=== PATIENT | female | born 1930 | race Caucasian/White ===

== ENCOUNTER 2016-09-06 18:06 | Inpatient (IN) ==
--- NOTE | 2016-09-06 18:11 | Emergency Department Note ---
Disposition Clinical Impression: Pleural effusion on left Acute renal failure Qualifiers: Acute renal failure type: unspecified Qualified Code(s): N17.9 - Acute kidney failure, unspecified Left lower lobe pneumonia Qualifiers: Pneumonia type: due to unspecified organism Qualified Code(s): J18.1 - Lobar pneumonia, unspecified organism Disposition: Admitted As Inpatient Condition: Fair Referrals: Ryan August MD [Primary Care Provider] - Forms: ED Satisfaction Letter SOB HPI - General Chief Complaint: ED Upper Respiratory Infection Stated Complaint: cough Time Seen by Provider: 09/06/16 18:09 Source: patient, other (custodial record, Dr. August) Mode of arrival: EMS Limitations: no limitations Nursing Notes Reviewed: Yes Vital Signs Reviewed: Yes - History of Present Illness The patient has had a recent pneumonia. She states she still has a cough productive of some white phlegm. She denies increased cough, fevers, chills or shortness of breath. She did have a chest x-ray performed showing opacification of the left lower lobe consistent with infiltrate, mass or large effusion. She has had a history of an effusion with thoracentesis in the past. She has been sent in for further evaluation of the left leg. She denies chest pain, palpitations, abdominal pain, nausea or vomiting. She denies increased weakness, dizziness or diaphoresis. She denies any extremity complaints. She indicates that she is feeling pretty good at this time. Pt Subjective Complaint: shortness of breath Onset (ago): day(s) Context: recent illness Severity: mild Consistency/Duration: intermittent Worsens with: nothing Known history of: recurrent pneumonia Associated symptoms: Reports: cough, sputum production. Denies: chest pain, pain with inspiration, fever, wheezing, orthopnea, lower extremity pain, polyuria, polydipsia, parasthesias, palpitations, hemoptysis, diaphoresis, nausea/vomiting, syncope, abdominal pain, rash Treatment prior to arrival: oxygen Cough present: Yes Cough Description: Voluntary, Productive Cough Frequency: Intermittent Sputum production: Yes Sputum Amount: Moderate Sputum Color: White - Related Data Home Medications Medication Instructions Recorded Confirmed Acetaminophen [Tylenol] 650 mg PO Q4HR 09/06/16 09/06/16 Albuterol Sulfate [Albuterol 2 puff IH Q6HR 09/06/16 09/06/16 Inhaler] Amlodipine [Norvasc] 5 mg PO DAILY 09/06/16 09/06/16 Bisacodyl [Laxative] 10 mg PO QAM 09/06/16 09/06/16 CloNIDine HCl [Clonidine HCl] 0.2 mg PO BID 09/06/16 09/06/16 Docusate [Colace] 100 mg PO BID 09/06/16 09/06/16 GuaiFENesin ER [Mucinex] 600 mg PO TID 09/06/16 09/06/16 Lactulose 20 gm PO QAM 09/06/16 09/06/16 Losartan Potassium [Cozaar] 100 mg PO DAILY 09/06/16 09/06/16 Lovastatin [Altoprev] 40 mg PO QAM 09/06/16 09/06/16 Lovastatin [Altoprev] 40 mg PO QAM 09/06/16 09/06/16 Magnesium Hydroxide [Milk of 400 mg PO QAM 09/06/16 09/06/16 Magnesia] Omeprazole 20 mg PO QAM 09/06/16 09/06/16 Vit C/E/Zn/Coppr/Lutein/Zeaxan 1 cap PO QAM 09/06/16 09/06/16 [Preservision Areds 2 Softgel] Allergies Allergy/AdvReac Type Severity Reaction Status Date / Time No Known Allergies Allergy Verified 09/06/16 18:07 All systems ED: reviewed and negative except as stated. Past Medical History - Past Medical History Attestation: Yes The following information was validated with the patient. Source: patient, old records reviewed, nursing notes reviewed Medical history: Reports: cancer (Lung cancer, squamous cell), COPD (Emphysema) , dementia, GERD, hyperlipidemia, hypertension Surgical history: Reports: , hysterectomy Psychiatric history: Reports: no psych history - Social History Smoking Status: Former smoker Alcohol use: Reports: none Drug use: Reports: none Physical Exam - General Limitations: no limitations General appearance: alert, in no apparent distress - Head Head exam: atraumatic, normocephalic, normal inspection - Eye Eye exam: Present: normal appearance, PERRL, EOMI - ENT ENT exam: normal exam, normal oropharynx, mucous membranes moist - Neck Neck exam: Present: normal inspection, full ROM, trachea midline - Chest Chest inspection: Present: normal inspection, symmetric chest wall rise - Respiratory Respiratory exam: Absent: normal lung sounds bilaterally (Diminished breath sounds at the left base.), respiratory distress, wheezes, prolonged expiratory phase - Cardiovascular Cardiovascular exam: Present: regular rate, normal rhythm, normal heart sounds - Abdominal Exam Abdominal exam: Present: soft, Non-Tender, normal bowel sounds. Absent: tenderness, distention, guarding, rebound, rigidity - Extremities Exam Extremities exam: Present: normal inspection, full ROM, normal capillary refill. Absent: tenderness, pedal edema, calf tenderness - Expanded Lower Extremity Exam Neurovascular/Tendon exam: Present: normal capillary refill. Absent: motor deficit, sensory deficit, tendon deficit Gait: not tested/not observed - Neurological Exam Neurological exam: Present: alert. Absent: motor sensory deficit - Psychiatric Psychiatric exam: Present: normal affect, normal mood - Skin Skin exam: Present: warm, dry, intact, normal color. Absent: rash, cyanosis, diaphoresis, pallor Course Vital Signs Temperature 97.8 F 09/06/16 18:08 Temperature 97.8 F 09/06/16 19:05 Pulse Rate 58 09/06/16 19:05 Respiratory Rate 16 09/06/16 19:05 Blood Pressure 98/37 09/06/16 19:05 O2 Sat by Pulse Oximetry 95 09/06/16 19:05 Oxygen Delivery Oxygen Delivery Nasal Cannula Shortness of Breath/Dyspnea - Differential Diagnosis Likely: acute exacerbation of chronic obstructive airways disease, pneumonia ( Lung mass, pleural effusion) - Medical Records Medical records reviewed: Yes I reviewed the patient's medical records. - Lab Data Lab results reviewed: Yes I reviewed the patient's lab results. Lab results narrative: Patient's renal failure is acute. Result diagrams: 09/06/16 18:27 09/06/16 18:27 Lab Results 09/06/16 09/06/16 09/06/16 Range/Units 18:27 18:27 18:27 WBC 22.7 H (4.3-11.1) K/mcL RBC 3.44 L (3.82-4.97) M/mcL Hgb 10.4 L (11.5-15.4) g/dL Hct 31.8 L (35.3-44.9) % MCV 92.4 (83.0-100.0) fL MCH 30.2 (28.0-33.3) pg MCHC 32.7 (31.6-35.5) g/dL RDW 14.4 (11.5-14.5) % Plt Count 302 (140-400) K/mcL MPV 9.6 (9.4-12.4) fL Immature Gran % 0.8 (0-4) % Seg Neutrophils % 84.1 % Lymphocytes % 9.0 % Monocytes % 6.0 % Eosinophils % 0.0 % Basophils % 0.1 % Neutrophils # 19.1 H (1.6-8.9) K/mcL Lymphocytes # 2.0 (0.6-4.6) K/mcL Monocytes # 1.4 H (0.0-1.3) K/mcL Eosinophils # 0.0 (0.0-0.6) K/mcL Basophils # 0.0 (0.0-0.2) K/mcL PT 12.6 H (9.4-12.1) Seconds INR 1.2 APTT 27.6 (26.0-36.0) Seconds Sodium 139 (136-145) mEq/L Potassium 3.9 (3.5-4.5) mEq/L Chloride 105 (98-109) mEq/L Carbon Dioxide 20 (19-29) mEq/L BUN 32 H (7-20) mg/dL Creatinine 1.97 H (0.57-1.11) mg/dL Est GFR ( Amer) 29 L (> 60) Est GFR (Non-Af Amer) 24 L (> 60) BUN/Creatinine Ratio 16 (6-26) Glucose 186 H (70-99) mg/dL Calculated Osmolality 300 (280-300) Calcium 8.9 (8.6-10.8) mg/dL - Radiology Data Radiology results reviewed: Yes I reviewed the patient's radiology results. CT is performed with the chest. This shows a very large left pleural effusion with volume loss to the left hemithorax. There is compensatory hyperexpansion of the right lung. There appears to be consolidation within the effusion fluid in the left base. This is on my interpretation. Impressions Chest CT 09/06/16 18:09 IMPRESSION: 1. Complete collapse of the left lower lobe with endobronchial debris noted within the left mainstem and left lower lobe bronchi. Findings again may be related to mucous plugging, however, further pathology is not excluded given prior history of lung cancer. 2. Innumerable nodular densities throughout the left upper lobe measuring up to 1.2 cm in size. Findings could potentially reflect an infectious etiology, however, short interval follow-up to resolution is recommended to exclude recurrence given patient's prior history of lung cancer. 3. Grossly similar appearance of right middle lobe opacities when compared with prior exam from 2013. 4. Moderate size left pleural effusion. 5. Severe atherosclerotic disease. D/ / Baljinder Khan MD / Baljinder Khan MD Interpreting Provider: Baljinder Khan MD
[2016-09-06 18:33] LABS: Basophils % 0.1 %; Hematocrit 31.8 % (35.3-44.9); Hemoglobin 10.4 g/dL (11.5-15.4); Immature Granulocytes % 0.8 % (0-4); Mean Corpuscular HGB Conc 32.7 g/dL (31.6-35.5); Mean Corpuscular Hemoglobin 30.2 pg (28.0-33.3); Mean Corpuscular Volume 92.4 fL (83.0-100.0); Mean Platelet Volume 9.6 fL (9.4-12.4); Monocytes # 1.4 K/mcL (0.0-1.3); Platelet Count 302 K/mcL (140-400); Red Blood Count 3.44 M/mcL (3.82-4.97); Red Cell Distribution Width 14.4 % (11.5-14.5); Segmented Neutrophils % 84.1 %
[2016-09-06 18:34] LABS: Neutrophils # 19.1 K/mcL (1.6-8.9)
[2016-09-06 18:38] LABS: INR 1.2; Prothrombin Time 12.6 Seconds (9.4-12.1)
[2016-09-06 18:41] LABS: Activated Partial Thrombo Time 27.6 Seconds (26.0-36.0)
[2016-09-06 18:48] LABS: Calcium 8.9 mg/dL (8.6-10.8); Potassium 3.9 mEq/L (3.5-4.5)
[2016-09-06] MEDS ORDERED: Piperacillin/Tazobactam 3.375 GM in D5% in Water (Mini-Bag+) 100 ML IVPB SCH (19:12)
[2016-09-06] MEDS ORDERED: 0.9 % Sodium Chloride 1,000 ML IVC SCH (19:15)
[2016-09-06] MEDS: 0.9 % Sodium Chloride 1,000 ML IVC SCH (20:43)
[2016-09-06] MEDS ORDERED: MOM Conc 10 ML UD.LIQ PO PRN (20:45)
[2016-09-06] MEDS ORDERED: Albuterol 2.5 MG/3 ML NEBULIZER IH PRN (20:45)
[2016-09-06] MEDS ORDERED: Ondansetron 4 MG/2 ML VIAL IVP PRN (20:45)
[2016-09-06] MEDS ORDERED: Naloxone 0.4 MG/ML INJ IVP PRN (20:45)
[2016-09-06] MEDS: Ipratropium/Albuterol Neb 3 ML IH SCH (22:15)
[2016-09-06] MEDS: Acetaminophen 325 MG TABLET PO SCH (22:49)
[2016-09-07] MEDS: Acetaminophen 325 MG TABLET PO SCH ×3 (00:56→09:06)
[2016-09-07] MEDS: Ipratropium/Albuterol Neb 3 ML IH SCH ×2 (03:57→09:28)
[2016-09-07 05:16] LABS: Basophils % 0.1 %; Hemoglobin 9.5 g/dL (11.5-15.4); Immature Granulocytes % 1.2 % (0-4); Lymphocytes # 1.2 K/mcL (0.6-4.6); Lymphocytes % 6.4 %; Mean Corpuscular HGB Conc 31.7 g/dL (31.6-35.5); Mean Corpuscular Hemoglobin 29.9 pg (28.0-33.3); Mean Corpuscular Volume 94.3 fL (83.0-100.0); Mean Platelet Volume 9.9 fL (9.4-12.4); Monocytes # 1.4 K/mcL (0.0-1.3); Monocytes % 7.4 %; Neutrophils # 16.4 K/mcL (1.6-8.9); Platelet Count 244 K/mcL (140-400); Red Blood Count 3.18 M/mcL (3.82-4.97); Red Cell Distribution Width 14.3 % (11.5-14.5); Segmented Neutrophils % 84.9 %
[2016-09-07 05:33] LABS: Calcium 8.7 mg/dL (8.6-10.8)
[2016-09-07] MEDS: 0.9 % Sodium Chloride 1,000 ML IVC SCH (05:48)
[2016-09-07] MEDS ORDERED: Piperacillin/Tazobactam 3.375 GM in D5% in Water (Mini-Bag+) 100 ML IVPB SCH ×2 (07:30)
[2016-09-07] MEDS ORDERED: Lactulose Oral Soln 20 GM/30 ML UDC PO SCH (09:00)
[2016-09-07] MEDS: MOM Conc 10 ML UD.LIQ PO SCH ×2 (09:02→09:13)
[2016-09-07] MEDS ORDERED: Aspirin 81 MG TAB.CHEW ONE (10:34)
[2016-09-07] MEDS ORDERED: *HR* Ticagrelor 90 MG TABLET PO ONE (10:47)
[2016-09-07] MEDS ORDERED: *HR* Heparin 5,000 UNIT/ML VIAL IVP PRN ×2 (10:48)
[2016-09-07] MEDS ORDERED: *HR* Heparin 5,000 UNIT/ML VIAL IVP ONE (10:48)
--- NOTE | 2016-09-07 10:56 | Internal Med Progress Note ---
Date of Encounter: 09/07/16 Time of Encounter: 10:53 - Time Spent With Patient Patient immediately went seen at the request of Dr. August to evaluate patient showing signs of an acute inferior wall MD patient's a DNR CC A spoke with patient about the fact that she is having acute inferior wall MD she is not nauseated or diaphoretic patient states though please do it takes to take care of me examination the patient reveals that she is alert answers questions appropriately she knows name and date she appears to be well cared for skin without rash or lesions lungs clear to auscultation heart regular rate and rhythm abdomen is soft supple positive bowel sounds laboratory data is pending at this time immediate STEMI alert notified with Dr. Kim being notified as accepted the patient patient immediately sent for transfer patient given aspirin and birlinta and heparin here in the [facility] unit room 41 - Constitutional Vitals: Temp Pulse Resp BP Pulse Ox 97.8 F 63 17 99/56 94 09/07/16 04:00 09/07/16 09:05 09/07/16 09:30 09/07/16 09:05 09/07/16 09:30 - Eye Eye exam: Present: PERRL, conjuntiva pink, sclera anicteric Pupils: Present: PERRL - Neck Neck exam general surgery: Present: supple, trachea midline. Absent: lymphadenopathy - Respiratory Respiratory exam: Present: CTAB. Absent: accessory muscle use, rales, rhonchi, wheezes - Cardiovascular Cardiovascular exam: Present: bradycardia, RRR, +S1, +S2. Absent: diastolic murmur, gallop, rubs, systolic murmur - GI/Abdominal GI/Abdominal exam: Present: normal bowel sounds, soft, no peritoneal signs. Absent: distended, tenderness - Extremities Exam Extremities exam: Present: warm, radial pulses palpable and symetrical. Absent : calf tenderness, cyanotic, pedal edema Internal Medicine: Result - Labs CBC & Chem 7: 09/07/16 04:38 09/07/16 04:38 Labs: Short CBC 09/07/16 Range/Units 04:38 WBC 19.3 H (4.3-11.1) K/mcL Hgb 9.5 L (11.5-15.4) g/dL Hct 30.0 L (35.3-44.9) % Plt Count 244 (140-400) K/mcL Neutrophils # 16.4 H (1.6-8.9) K/mcL BMP 09/07/16 04:38 Sodium 142 Potassium 4.0 Chloride 108 Carbon Dioxide 22 BUN 34 H Creatinine 1.70 H Glucose 141 H Calcium 8.7 - ABG Interpretation ABG results: PT/INR, D-dimer PT 12.6 Seconds (9.4-12.1) H 09/06/16 18:27 - EKG Interpretation EKG Interpreted by Myself: Yes ( sinus bradycardia acute inferior wall MD ST segment elevation II,III,AVF) - Prior EKG Data Prior EKG available for review: yes When compared to previous EKG: there are significant changes EKG comments: 09/07/16 10:56 EKG consistent with acute inferior will MD repeated 36 minutes later changes are consistent with increasing ST segment elevation in 23 aVF V through V6 KG # 1 sinus bradycardia rate 46 MD 194 QRS 109 DT 510 axis LXXX 9 repeat EKG bradycardia extension to 3 aVF and V3 through V6 rate 47 QRS 105 QT 445 axis LVIII - VTE Documentation of Mechanical Device: Graduated compression elastic hosiery Consult Discharge Plan - Plan Additional Instructions: PT immediately sent to the [facility] at [facility] Referrals: Ryan August MD [Primary Care Provider] - 1 week
[2016-09-07] MEDS ORDERED: Heparin 25,000 UNIT/500 ML D5W 25,000 UNIT/500 ML MLS IVC SCH (11:00)
[2016-09-07] MEDS ORDERED: Aspirin 81 MG TAB.CHEW PO ONE (11:00)
[2016-09-07 11:27] LABS: Hemoglobin 9.8 g/dL (11.5-15.4); Mean Corpuscular HGB Conc 31.6 g/dL (31.6-35.5); Mean Corpuscular Hemoglobin 30.2 pg (28.0-33.3); Mean Corpuscular Volume 95.7 fL (83.0-100.0); Mean Platelet Volume 10.2 fL (9.4-12.4); Platelet Count 249 K/mcL (140-400); Red Blood Count 3.24 M/mcL (3.82-4.97); Red Cell Distribution Width 14.3 % (11.5-14.5)
[2016-09-07 11:30] LABS: INR 1.1; Prothrombin Time 12.1 Seconds (9.4-12.1)
[2016-09-07 11:33] LABS: Activated Partial Thrombo Time 25.9 Seconds (26.0-36.0)
[2016-09-07 11:42] VITALS: BP 93/51
--- NOTE | 2016-09-07 12:11 | Discharge Summary ---
Date of Encounter: 09/07/16 Time of Encounter: 12:05 - Discharge Diagnosis (1) Acute MO Priority: Primary Status: Acute Qualifiers: Myocardial infarction ST status: ST elevation myocardial infarction Involved coronary artery: unspecified coronary artery Qualified Code(s): I21.3 - ST elevation (STEMI) myocardial infarction of unspecified site (2) Left lower lobe pneumonia Priority: Secondary Status: Acute Qualifiers: Pneumonia type: due to unspecified organism Qualified Code(s): J18.1 - Lobar pneumonia, unspecified organism - Discharge Medications Home Medications: Acetaminophen [Tylenol] 650 mg PO Q4HR 09/06/16 [History] Albuterol Sulfate [Albuterol Inhaler] 2 puff IH Q6HR 09/06/16 [History] Amlodipine [Norvasc] 5 mg PO DAILY 09/06/16 [History] Bisacodyl [Laxative] 10 mg PO QAM 09/06/16 [History] CloNIDine HCl [Clonidine HCl] 0.2 mg PO BID 09/06/16 [History] Docusate [Colace] 100 mg PO BID 09/06/16 [History] GuaiFENesin ER [Mucinex] 600 mg PO TID 09/06/16 [History] Lactulose 20 gm PO QAM 09/06/16 [History] Losartan Potassium [Cozaar] 100 mg PO DAILY 09/06/16 [History] Lovastatin [Altoprev] 40 mg PO QAM 09/06/16 [History] Lovastatin [Altoprev] 40 mg PO QAM 09/06/16 [History] Magnesium Hydroxide [Milk of Magnesia] 400 mg PO QAM 09/06/16 [History] Omeprazole 20 mg PO QAM 09/06/16 [History] Vit C/E/Zn/Coppr/Lutein/Zeaxan [Preservision Areds 2 Softgel] 1 cap PO QAM 09/06 [History] Allergies/Adverse Reactions: Allergies No Known Allergies Allergy (Verified 09/06/16 18:07) Procedures/tests Complete & Pending: Procedures Performed prior 72 hours Category Date Time Status ECG 12 lead ECG [ECG] Routine Y 09/07/16 11:24 Ordered EKG [ECG 12 lead ECG] [ECG] Routine Y 09/07/16 11:21 Ordered Date of admission: 03/31/17 19:36 Primary care physician: Ryan August MD - Patient Status Disposition: Transfer Other Condition: Fair - Discharge Instructions Follow Up With: Ryan August MD [Primary Care Provider] - 1 week Additional Instructions: PT immediately sent to the [facility] at [facility] course: Ms. Cyr is a 86 year old female who [facility] she had evidence of pneumonia with probable left pleural effusion on chest x-ray done at the jail. Chest CT scan done in the emergency room showed bilateral effusions with probable pneumonia present. Initial orders were written by the emergency room physician. She was started on IV Zosyn for pneumonia. Before I saw her the morning of September 07 the nursing staff noted there was a change in her telemetry EKG pattern. A 12-lead EKG was done and showed acute inferior wall myocardial infarction. The emergency room physician was notified since I was not in the hospital at the time. Dr. Mujica contacted [facility] and Dr. Celis accepted the patient. She was to be transferred to [facility] for acute intervention. - Time Spent with Patient Total time spent providing and/or coordinating discharge services: - Constitutional Vitals: Temp Pulse Resp BP Pulse Ox 97.8 F 46 17 93/51 93 09/07/16 04:00 09/07/16 11:36 09/07/16 09:30 09/07/16 11:36 09/07/16 11:36 - VTE Documentation of Mechanical Device: Graduated compression elastic hosiery
[2016-09-07] MEDS ORDERED: *HR* Ticagrelor 90 MG TABLET PO SCH (21:00)
--- NOTE | 2016-09-08 13:51 | Electrocardiograph Report ---
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
--- NOTE | 2016-09-08 13:53 | Electrocardiograph Report ---
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
== END 2016-09-07 11:20 | disposition short-term general hospital (02) | DRG 193 ==
LOC: EMEROOPIK 18:06 → INPPIK 19:36
PROVIDERS: ADMIT Internal Medicine; ATTEND Internal Medicine